=== PATIENT | male | born 1980 | race Caucasian/White ===

== ENCOUNTER → 2023-04-24 21:36 | Outpatient (CLI) | payer MEDICAID, SELFPAY ==
[2023-04-24 18:57] LABS: Basophils % 0.4 % (0.1-2.0); Eosinophils # 0.2 K/mm3 (0.0-0.4); Eosinophils % 1.7 % (0.1-12.0); Hematocrit 50.6 % (42.0-52.0); Hemoglobin 16.5 g/dL (14.1-18.0); Lymphocytes # 3.6 K/mm3 (0.7-4.5); Lymphocytes % 37.9 % (10-50); Mean Corpuscular HGB Conc 32.6 g/dL (31.8-35.4); Mean Corpuscular Hemoglobin 29.1 pg (27.0-31.2); Mean Corpuscular Volume 89.4 fl (80-94); Mean Platelet Volume 8.6 fl (7.4-10.4); Monocytes # 0.6 K/mm3 (0.1-1.0); Monocytes % 5.8 % (1.7-9.3); Neutrophils # 5.2 K/mm3 (1.8-7.8); Neutrophils % 54.2 % (37.0-80.0); Platelet Count 278 K/mm3 (142-424); Red Blood Count 5.66 M/mm3 (4.60-6.20); Red Cell Distribution Width 12.8 % (11.5-17.5); White Blood Count 9.5 K/mm3 (4.8-10.8)
[2023-04-24 19:02] LABS: Chloride 97 mmol/L (98-107); Potassium 4.1 mmoL/L (3.5-5.1); Sodium 135 mmol/L (136-145)
[2023-04-24 19:04] LABS: Blood Urea Nitrogen 16 mg/dl (9-20); Estimated Glomerular Filt Rate 146 ml/min (>60); GFR (African American) 176 ML/MIN (>60)
[2023-04-24 19:05] LABS: Alanine Aminotransferase 46 U/L (12-78); Albumin Level 4.2 g/dl (3.5-5.0); Albumin/Globulin Ratio 1.4 (1.1-1.8); Alkaline Phosphatase 122 U/L (38-126); Anion Gap 16.1 mEq/L (5-15); Aspartate Amino Transferase 35 U/L (17-59); Bilirubin,Total 0.8 mg/dl (0.2-1.3); Calcium 9.9 mg/dl (8.4-10.2); Carbon Dioxide 26 mmol/L (22.0-30.0); Chol/HDL Ratio 6.2 (1-3.5); Cholesterol 224 mg/dl (140-200); Globulin 3.1 g/dL (1.3-3.2); Glucose 244 mg/dl (74-100); HDL Cholesterol 36 mg/dl (40-60); Total Protein,Serum 7.3 g/dl (6.3-8.2); Triglycerides 280 mg/dl (30-150); VLDL Cholesterol 56 mg/dL (0-40)
[2023-04-24 19:16] LABS: Direct LDL Cholesterol 127.13 mg/dL (100-129)
[2023-04-24 19:29] LABS: Hemoglobin A1C 8.8 % (4.0-6.0)
== END ==
PROVIDERS: PCP Family Medicine; Visit Provider Family Medicine
DX: E11.9 Type 2 diabetes mellitus without complications (principal); I10 Essential (primary) hypertension; Z79.84 Long term (current) use of oral hypoglycemic drugs; Z79.899 Other long term (current) drug therapy; Z76.89 Persons encountering health services in other specified circumstances
CPT/HCPCS: 80053; 80061; 83036; 85025

== ENCOUNTER 2023-10-05 10:20 | Emergency (ER) | payer MEDICAID, SELFPAY ==
[2023-10-05 10:22] VITALS: BP 142/93; PULSE 72; RESP 16; TEMP 36.9; O2SAT 98; BMI 32.3
[2023-10-05 10:37] LABS: Microscopic, Urine URINE MICROSCOPIC (MICROSCOPIC)
[2023-10-05 10:40] LABS: Appearance,Urine CLEAR (Clear); Bilirubin,Urine Negative (Negative); Blood, Urine Negative (Negative); Color,Urine YELLOW (Yellow); Glucose,Urine (UA) 3+ (Negative); Ketones,Urine Negative (Negative); Leukocyte Esterase,Urine Negative (Negative); Nitrate,Urine Negative (Negative); Protein,Urine Negative (Negative); Urobilinogen,Urine 0.2 EU/dl (0.2)
[2023-10-05] MEDS: LACTATED RINGERS 1000ML 1,000 ML 999 ML IV (10:46)
--- NOTE | 2023-10-05 10:48 | CT_ITS ---
PROCEDURE INFORMATION: Exam: CTA Neck With Contrast Exam date and time: 10/05/2023 11:20 AM Age: 43 years old Clinical indication: Visual disturbance; Additional info: Vision change TECHNIQUE: Imaging protocol: Computed tomographic angiography of the neck with contrast. Exam focused on the cervical segments of the vasculature. 3D rendering (Not supervised by radiologist): MIP and/or 3D reconstructed images were created by the technologist. Radiation optimization: All CT scans at this facility use at least one of these dose optimization techniques: automated exposure control; mA and/or kV adjustment per patient size (includes targeted exams where dose is matched to clinical indication); or iterative reconstruction. Contrast material: ISO 370; Contrast volume: 100 ml; Contrast route: INTRAVENOUS (IV); COMPARISON: CT ANGIO HEAD 10/05/2023 11:20 AM FINDINGS: Right common carotid artery: No stenosis. No dissection or occlusion. Right internal carotid artery: No stenosis of the extracranial segment. No dissection or occlusion. Right external carotid artery: No occlusion or stenosis of the origin. Left common carotid artery: No stenosis. No dissection or occlusion. Left internal carotid artery: No stenosis of the extracranial segment. No dissection or occlusion. Left external carotid artery: No occlusion or stenosis of the origin. Right vertebral artery: No stenosis. No dissection or occlusion. Left vertebral artery: No stenosis. No dissection or occlusion. Paranasal sinuses: Polypoid mucosal thickening is noted in the floor the right maxillary antrum, to a lesser extent bilateral anterior ethmoid air cells. Soft tissues: Normal. No significant soft tissue swelling. Bones/joints: No acute fracture. IMPRESSION: No carotid stenosis. REFERENCES: NASCET CRITERIA. The degree of stenosis in the cervical segment of the internal carotid artery is based on NASCET criteria. Normal is no stenosis. Mild is less than 50% stenosis. Moderate is 50-69% stenosis. Severe is 70% to 99% stenosis. Total occlusion is no detectable patent lumen.
--- NOTE | 2023-10-05 10:48 | XR_ITS ---
PROCEDURE INFORMATION: Exam: XR Chest Exam date and time: 10/05/2023 11:22 AM Age: 43 years old Clinical indication: Pain; Chest pressure; Additional info: Cp dizzy TECHNIQUE: Imaging protocol: Radiologic exam of the chest. Views: 1 view. COMPARISON: CT ANGIO NECK 10/05/2023 11:20 AM FINDINGS: Lungs: Unremarkable. No consolidation. Pleural spaces: Unremarkable. No pleural effusion. No pneumothorax. Heart/Mediastinum: Unremarkable. No cardiomegaly. Bones/joints: Unremarkable. IMPRESSION: No acute findings.
--- NOTE | 2023-10-05 10:48 | CT_ITS ---
PROCEDURE INFORMATION: Exam: CTA Head With Contrast, Arteriography Exam date and time: 10/05/2023 11:20 AM Age: 43 years old Clinical indication: Visual disturbance; Additional info: Vision change TECHNIQUE: Imaging protocol: Computed tomographic angiography of the head with contrast. Exam focused on the arteries. 3D rendering (Not supervised by radiologist): MIP and/or 3D reconstructed images were created by the technologist. Radiation optimization: All CT scans at this facility use at least one of these dose optimization techniques: automated exposure control; mA and/or kV adjustment per patient size (includes targeted exams where dose is matched to clinical indication); or iterative reconstruction. Contrast material: ISO 370; Contrast volume: 100 ml; Contrast route: INTRAVENOUS (IV); COMPARISON: CT HEAD/BRAIN WO CON 10/05/2023 11:20 AM FINDINGS: ANTERIOR CIRCULATION: Right internal carotid artery: Intracranial segment is patent with no significant stenosis. No aneurysm. Right middle cerebral artery: No occlusion or significant stenosis. No aneurysm. Right anterior cerebral artery: No occlusion or significant stenosis. No aneurysm. Left internal carotid artery: Intracranial segment is patent with no significant stenosis. No aneurysm. Left middle cerebral artery: No occlusion or significant stenosis. No aneurysm. Left anterior cerebral artery: No occlusion or significant stenosis. No aneurysm. POSTERIOR CIRCULATION: Right vertebral artery: No occlusion or significant stenosis. No aneurysm. Left vertebral artery: No occlusion or significant stenosis. No aneurysm. Basilar artery: No occlusion or significant stenosis. No aneurysm. Right posterior cerebral artery: No occlusion or significant stenosis. No aneurysm. Left posterior cerebral artery: No occlusion or significant stenosis. No aneurysm. Brain: No definite mass, mass effect, or midline shift. Cerebral ventricles: No ventriculomegaly. Paranasal sinuses: Polypoid mucosal thickening is noted within ethmoid air cells in the right maxillary antrum. Bones/joints: Unremarkable. No acute fracture. Soft tissues: Unremarkable. IMPRESSION: No intracranial large vessel occlusion.
--- NOTE | 2023-10-05 10:48 | CT_ITS ---
PROCEDURE INFORMATION: Exam: CT Head Without Contrast Exam date and time: 10/05/2023 11:20 AM Age: 43 years old Clinical indication: Visual disturbance; Additional info: Vision change TECHNIQUE: Imaging protocol: Computed tomography of the head without contrast. Radiation optimization: All CT scans at this facility use at least one of these dose optimization techniques: automated exposure control; mA and/or kV adjustment per patient size (includes targeted exams where dose is matched to clinical indication); or iterative reconstruction. COMPARISON: CT ANGIO HEAD 10/05/2023 11:20 AM FINDINGS: Brain: Normal. No hemorrhage. Unremarkable white matter. No mass effect. Cerebral ventricles: No ventriculomegaly. Paranasal sinuses: Visualized sinuses are unremarkable. No fluid levels. Mastoid air cells: Visualized mastoid air cells are well aerated. Bones/joints: Unremarkable. No acute fracture. Soft tissues: Unremarkable. IMPRESSION: No evidence of acute intracranial abnormality.
[2023-10-05 10:50] LABS: Bacteria,Urine Trace /lpf; Squamous Epithelial Cell,Urine Occasional #/hpf (0-5)
[2023-10-05 10:51] VITALS: BP 142/93; RESP 18
--- NOTE | 2023-10-05 10:51 | ED_ITS ---
Discharge Plan Disposition Patient Disposition: Home, Self-Care Condition: Good Prescriptions Prescriptions: No Action oxycodone 10 mg tablet 10 mg PO QID PRN tizanidine 4 mg capsule 4 mg PO Q8H PRN metformin 1,000 mg tablet 1,000 mg PO BID Qty: 180 3RF glimepiride [Amaryl] 2 mg tablet 2 mg PO DAILY Qty: 90 3RF atorvastatin [Lipitor] 20 mg tablet 20 mg PO DAILY Qty: 90 3RF (DME) blood-glucose meter [Blood Glucose Monitoring] Kit See Rx Instructions .Route Qty: 1 0RF Rx Instructions: As directed (DME) Freestyle [employer] Strip See Rx Instructions .Route Qty: 50 0RF Rx Instructions: test once a day lisinopril-hydrochlorothiazide 10-12.5 mg tablet 1 tab PO DAILY Qty: 90 3RF Referrals Follow up/Referrals: Provider,Referral, [Primary Care Provider] - See instructions Activity Restrictions/Add. Instructions Additional Instructions/Restrictions: You were evaluated in the ER for concerns of high blood glucose. Call your [facility] physician and make an appointment for reevaluation immediately. They will likely want to change your current diabetes medications. Your current A1c is 10.3. Continue taking all home medications as previously prescribed until your follow-up appointment. Return to the ER with any new, worsening, or otherwise concerning symptoms Clinical Impressions Clinical Impression: Hyperglycemia, Diabetes Instructions Patient Instructions: DI for Hyperglycemia -- Adult Discharge ED Provider: Sandro Mott Adult HPI General Chief complaint: Hyper/Hypoglycemia Stated complaint: Diabetic emergency 340 Time Seen by Provider: 10/05/23 10:32 Mode of Arrival: Ambulatory Source of Information: Patient Limitations: No Limitations Description of Symptoms (Recalled from ER Triage Doc. by RN): Patient reports increased blood sugars. States he did a liquid fast and durning that time his glucose just kept rising. History of Present Illness HPI narrative: This 43-year-old male who is a type II diabetic presents to the ER with concerns of high blood sugars. Patient states he tried doing a fast and his glucose just kept rising. He broke his fast 4 days ago. Blood sugars have been hovering around 300 including this morning. Patient states he has been having blurry vision worsening over the last month, especially in the last few days. He denies any other neurologic symptoms at this time. 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 He endorses abdominal pain yesterday with nausea but no similar symptoms today. Patient states he is having increased thirst and urination as well. He only takes metformin currently for diabetes Related Data Home Medications Medication Instructions Recorded Confirmed oxycodone 10 mg tablet 10 mg PO QID PRN 04/24/23 04/24/23 tizanidine 4 mg capsule 4 mg PO Q8H PRN 04/24/23 04/24/23 Previous Rx's Medication Instructions Recorded metformin 1,000 mg tablet 1,000 mg PO BID #180 tabs 04/24/23 atorvastatin 20 mg tablet (Lipitor) 20 mg PO DAILY #90 tabs 04/29/23 glimepiride 2 mg tablet (Amaryl) 2 mg PO DAILY #90 tabs 04/29/23 blood-glucose meter (Blood Glucose #1 ea 05/22/23 Monitoring kit) blood sugar diagnostic (Freestyle #50 ea 08/05/23 [employer] strips) lisinopril 10 1 tab PO DAILY #90 tabs 08/12/23 mg-hydrochlorothiazide 12.5 mg tablet Allergies Allergy/AdvReac Type Severity Reaction Status Date / Time naproxen [From Naprosyn] Allergy Verified 10/05/23 10:32 tramadol Allergy Verified 04/24/23 09:29 [facility] Disclaimer: The information contained in this section may have been updated after the patient was seen, as this information can be updated by other users. Medical History (Updated 10/05/23 @ 12:56 by Sandro Mott MD) Arthritis Degenerated intervertebral disc Diabetes FHx: total knee replacement Hypertension Migraine Osteogenesis imperfecta PTSD (post-traumatic stress disorder) Stroke Surgical History (Updated 04/24/23 @ 17:35 by Huber Higuera MD) Hx of shoulder surgery Social History (Updated 04/24/23 @ 09:35 by RAJINDER Ponce) Smoking Status: Current every day smoker alcohol intake: former current occupational status: employed Travel in the last 8 weeks: None ROS Obtained: Yes All systems reviewed & no additional complaints except as documented Constitutional Constitutional: Denies chills, Denies fever(s), Denies headache(s) and Denies weakness Eyes Eyes: Reports change in vision and Denies diplopia ENT Ears, Nose, Mouth, and Throat: Denies dizziness, Denies headache(s), Denies nasal congestion and Denies sore throat Cardiovascular Cardiovascular: Reports chest pain, Reports dyspnea and Denies leg edema Respiratory Respiratory: Denies cough and Reports dyspnea Gastrointestinal Gastrointestingal: Denies constipation, diarrhea, nausea or vomiting Genitourinary Male Genitourinary: Denies difficulty urinating and Reports urinary frequency Musculoskeletal Musculoskeletal: Denies arthralgias, Denies myalgias, Denies numbness and Denies tingling Integumentary/Breasts Skin/Breast: Denies change in pigmentation Neurologic Neurologic: Denies dizziness, Denies headache(s), Denies numbness, Denies tingling and Denies weakness Endocrine Endocrine: Reports polydipsia and Reports polyuria Physical Exam General General appearance: alert and in no apparent distress Head Head exam: atraumatic and normocephalic Eye Eye exam: Present PERRL and EOMI ENT ENT exam: Present mucous membranes moist Neck Neck exam: Present normal inspection and full ROM Chest Chest inspection: Present symmetric chest wall rise Respiratory Respiratory exam: Present normal lung sounds bilaterally; Absent respiratory distress, wheezes or stridor Cardiovascular Cardiovascular exam: Present regular rate and normal rhythm Abdominal Exam Abdominal exam: Present soft; Absent distention or tenderness Extremities Exam Extremities exam: Present full ROM Neurological Exam Neurological exam: Present alert, oriented X3, CN II-XII intact and normal gait; Absent motor sensory deficit Psychiatric Psychiatric exam: Present normal affect and normal mood Skin Skin exam: Present warm and dry Medical Decision Making Todd Inquiry Pt receiving controlled substance: No Vital Signs: 10/05/23 10:22 10/05/23 10:51 10/05/23 11:11 Temperature 98.4 F Temperature Source Oral Pulse Rate 67 Pulse Rate [Radial] 72 Respiratory Rate 16 18 18 Blood Pressure 142/93 H 129/74 Blood Pressure [Right Arm] 142/93 H Blood Pressure Mean 92 Blood Pressure Mean [Right Arm] 109 Blood Pressure Source Automatic Cuff Blood Pressure Source [Right Arm] Automatic Cuff Blood Pressure Position Sitting Blood Pressure Position [Right Arm] Sitting 02 Sat by Pulse Oximetry 98 97 Oxygen Delivery Method Room Air Room Air 10/05/23 11:44 10/05/23 12:00 10/05/23 12:55 Temperature 98.4 F Temperature Source Oral Pulse Rate 64 74 76 Pulse Rate [Radial] Respiratory Rate 18 18 18 Blood Pressure 127/78 119/80 109/68 L Blood Pressure [Right Arm] Blood Pressure Mean 89 Blood Pressure Mean [Right Arm] Blood Pressure Source Automatic Cuff Automatic Cuff Blood Pressure Source [Right Arm] Blood Pressure Position Sitting Sitting Blood Pressure Position [Right Arm] 02 Sat by Pulse Oximetry 100 98 Oxygen Delivery Method Room Air Room Air Lab Data Lab Results 10/05/23 10:27: Urine Color Yellow, Urine Appearance Clear, Urine pH 6.0, Ur Specific [place] 1.010, Urine Protein Negative, Urine Glucose (UA) 3+, Urine Ketones Negative, Urine Blood Negative, Urine Nitrate Negative, Urine Bilirubin Negative, Urine Urobilinogen 0.2, Ur Leukocyte Esterase Negative, Urine RBC None, Urine WBC None, Ur Squamous Epith Cells Occasional, Urine Bacteria Trace 10/05/23 10:32: VBG pH 7.37, VBG pCO2 43.5, VBG pO2 51.7 H, VBG HCO3 24.8, VBG Total CO2 26.1, VBG O2 Saturation 86.3 H, VBG Base Excess -0.4 10/05/23 10:43: WBC 10.3, RBC 5.16, Hgb 15.9, Hct 44.9, MCV 87.0, MCH 30.8, MCHC 35.5 H, RDW 12.4, Plt Count 249, MPV 7.0 L, Neut % (Auto) 54.5, Lymph % (Auto) 36.9, [place] % (Auto) 4.7, Eos % (Auto) 3.1, Baso % (Auto) 0.7, Neut # (Auto) 5.6, Lymph # (Auto) 3.8, [place] # (Auto) 0.5, Eos # (Auto) 0.3, Baso # (Auto) 0.1, PT 10.9, INR 1.01, Sodium 131 L, Potassium 4.1, Chloride 96 L, Carbon Dioxide 25, Anion Gap 14.1, BUN 17, Creatinine 0.70, Estimated Creat Clear 192, Estimated GFR 122, Est GFR ( Amer) 148, Glucose 277 H, Hemoglobin A1c 10.3 H, Calcium 8.9, Total Bilirubin 0.6, AST 43, ALT 45, Alkaline Phosphatase 123, Troponin I < 0.01, Total Protein 7.2, Albumin 4.2, Globulin 3.0, Albumin/Globulin Ratio 1.4, Acetone Level None detected 10/05/23 10:43 10/05/23 10:43 Orders (Tests/Meds): ED MEDICATIONS Discontinued Medications Generic Name Dose Route Start Last Admin Trade Name Bandarq PRN Reason Stop Dose Admin Lactated Ringer's 1,000 mls @ 999 mls/hr 10/05/23 10:32 10/05/23 10:46 Lactated Ringer's 1000 Ml Bag IV 10/05/23 11:32 999 mls/hr .Q1H1M ONE Administration Iopamidol 100 ml 10/05/23 11:24 10/05/23 11:26 Iopamidol-370 (76%);100ml Bottle IV 10/05/23 11:25 100 ml ONCE ONE Administration Sodium Chloride 10 ml 10/05/23 11:24 10/05/23 11:25 Sodium Chloride 0.9% 10ml Syr (Rad Only) IV 10/05/23 11:25 10 ml ONCE ONE Administration Sodium Chloride 50 ml 10/05/23 11:24 10/05/23 11:25 0.9 % Sodium Chloride 50 Ml Vial IV 10/05/23 11:25 50 ml ONCE ONE Administration ORDERS Category Date Time Status CT angio head Stat Cat Scan 10/05/23 10:[address] angio neck Stat Cat Scan 10/05/23 10:[address] head/brain wo con Stat Cat Scan 10/05/23 10:48 Completed CXR --portable [XR chest portable] Stat Exams 10/05/23 10:48 Completed Acetone, Serum (Rapid) Stat Lab 10/05/23 10:43 Completed CBC w/Auto Diff [Complete Blood Count Auto Diff] Stat Lab 10/05/23 10:43 Completed CMP [Comprehensive Metabolic Panel] Stat Lab 10/05/23 10:43 Completed Hemoglobin A1C Stat Lab 10/05/23 10:43 Completed PT INR [Prothrombin Time INR] Stat Lab 10/05/23 10:43 Completed Trop I [Troponin I] Stat Lab 10/05/23 10:43 Completed Troponin I Q3H Lab 10/05/23 14:00 Ordered Troponin I Q3H Lab 10/05/23 17:00 Ordered Urinalysis and Microscopic Stat Lab 10/05/23 10:27 Completed VBG [Venous Blood Gas] Stat RT 10/05/23 10:32 Completed Medical Decision Narrative: In summary, this 43year old male presents to the emergency department today with concerns of high blood sugar, vision changes, intermittent chest pain and shortness of breath as well as abdominal discomfort yesterday. On initial evaluation patient is hemodynamically stable, afebrile, visual acuity 20/50 with unknown baseline. Differential diagnosis includes but is not limited to hyperglycemia, DKA, HHS, electrolyte abnormality, dehydration, patient does have history of stroke which is a comorbidity of current condition therefore I am being more thoughtful in my workup of his vision changes though I have high suspicion for hyperglycemia and diabetic retinopathy contributing. I did consider stroke. I also considered ACS given patient's chest pain, shortness of breath, and abdominal discomfort in the last 24 hours. Based on these concerns, I ordered cardiac workup, imaging of the brain as well as angiography, labs including VBG, acetone, electrolytes. ECG personally interpreted demonstrates normal sinus rhythm, rate 64, normal i ntervals, normal axis, no STEMI. Patient received IV fluids for treatment. Labs personally reviewed demonstrate no leukocytosis, WBC 10.3, no anemia, patient is hyperglycemic but similar to prior with blood glucose 277, it was 244 when he had a visit back in April 2023. Patient has mild hyponatremia but when corrected for glucose is normal. Nonactionable at this time. A1c is elevated at 10.3 worse than prior. UA negative for signs of infection but positive for glucose, undetectable acetone, normal anion gap. Initial troponin undetectable, repeat troponin is not necessary at this time given the duration of patient's symptoms, if this was cardiac in nature he would already have troponin elevation. XR personally interpreted demonstrates no acute intrathoracic abnormality on my personal interpretation, see radiology read for final interpretation. CT imaging personally interpreted demonstrate no acute intracranial abnormality such as bleed or mass, no acute vascular abnormality. See radiology read for final interpretation. On reassessment patient remains stable. He is appropriate for discharge at this time. I reviewed all instructions with him and he was given the opportunity to ask questions which were answered to his satisfaction. Most importantly he was instructed to have immediate follow-up with his primary care physician for better management of his blood glucose as I believe this is the underlying cause of his ongoing symptoms. Patient was given instructions on symptomatic management, follow up instructions, and return precautions for the emergency department. Patient indicated understanding and was discharged in stable condition. Critical Care Critical Care Time Critical Care Time: No
[2023-10-05 10:55] LABS: Basophils # 0.1 K/mm3 (0-0.2); Basophils % 0.7 % (0.1-2.0); Eosinophils # 0.3 K/mm3 (0.0-0.4); Eosinophils % 3.1 % (0.1-12.0); Hematocrit 44.9 % (42.0-52.0); Hemoglobin 15.9 g/dL (14.1-18.0); Lymphocytes # 3.8 K/mm3 (0.7-4.5); Lymphocytes % 36.9 % (10-50); Mean Corpuscular HGB Conc 35.5 g/dL (31.8-35.4); Mean Corpuscular Hemoglobin 30.8 pg (27.0-31.2); Monocytes # 0.5 K/mm3 (0.1-1.0); Monocytes % 4.7 % (1.7-9.3); Neutrophils # 5.6 K/mm3 (1.8-7.8); Neutrophils % 54.5 % (37.0-80.0); Platelet Count 249 K/mm3 (142-424); Red Blood Count 5.16 M/mm3 (4.60-6.20); Red Cell Distribution Width 12.4 % (11.5-17.5); White Blood Count 10.3 K/mm3 (4.8-10.8)
--- NOTE | 2023-10-05 10:56 | ECG_ITS ---
APPROVED REPORT Exam: Resting ECG HR:64 bpm ECG Measurements Heart Rate 64 AXES NH 183 P 40 QRSd 92 QRS 34 QT 378 T 31 QTc 388 Conclusion SINUS RHYTHM NORMAL ECG UNCONFIRMED REPORT Electronically signed by : Lj Melendez MD 10/08/2023 16:51:02
[2023-10-05 10:58] LABS: VBG Base Excess -0.4 mmol/L (-2.4-2.3); VBG HCO3 24.8 mmol/L (23-30); VBG Oxygen Saturation 86.3 % (50-70); VBG PCO2 43.5 mmol/L (35-51); VBG PH 7.37 mmol/L (7.31-7.41); VBG PO2 51.7 mmol/L (28-40); VBG Total CO2 26.1 mmol/L (23-27)
[2023-10-05 11:00] LABS: Acetone, Serum (Rapid) None Detected (None Detect); Chloride 96 mmol/L (98-107)
[2023-10-05 11:01] LABS: Potassium 4.1 mmoL/L (3.5-5.1); Sodium 131 mmol/L (136-145)
[2023-10-05 11:03] LABS: Alanine Aminotransferase 45 U/L (12-78); Alkaline Phosphatase 123 U/L (38-126); Aspartate Amino Transferase 43 U/L (17-59); Bilirubin,Total 0.6 mg/dl (0.2-1.3); Blood Urea Nitrogen 17 mg/dl (9-20); Creatinine Clearance Estimated 192 mL/min (50-200); Estimated Glomerular Filt Rate 122 ml/min (>60); GFR (African American) 148 ML/MIN (>60)
[2023-10-05 11:04] LABS: Albumin Level 4.2 g/dl (3.5-5.0); Albumin/Globulin Ratio 1.4 (1.1-1.8); Anion Gap 14.1 mEq/L (5-15); Calcium 8.9 mg/dl (8.4-10.2); Carbon Dioxide 25 mmol/L (22.0-30.0); Glucose 277 mg/dl (74-100); Total Protein,Serum 7.2 g/dl (6.3-8.2)
[2023-10-05 11:05] LABS: INR 1.01 (0.9-1.1); Prothrombin Time 10.9 seconds (10.1-12.5)
[2023-10-05 11:11] VITALS: BP 129/74; PULSE 67; RESP 18; O2SAT 97
--- NOTE | 2023-10-05 11:15 | PC.NURSE ---
PT TO CT
[2023-10-05 11:18] LABS: Troponin I < 0.01 ng/ml (0.00-0.034)
[2023-10-05 11:20] LABS: Hemoglobin A1C 10.3 % (4.0-6.0)
[2023-10-05] MEDS: SODIUM CHLORIDE 0.9% 10ML SYR (RAD ONLY) 10 ML IV (11:25)
[2023-10-05] MEDS: 0.9 % SODIUM CHLORIDE 50 ML VIAL IV (11:25)
[2023-10-05] MEDS: IOPAMIDOL-370 (76%);100ML BOTTLE 100 ML IV (11:26)
--- NOTE | 2023-10-05 11:28 | PC.NURSE ---
PT RETURNED FROM CT
[2023-10-05 11:44] VITALS: BP 127/78; PULSE 64; RESP 18; O2SAT 100
[2023-10-05 12:00] VITALS: BP 119/80; PULSE 74; RESP 18; O2SAT 98
--- NOTE | 2023-10-05 12:49 | PC.NURSE ---
DR BERNSTIEN AT BEDSIDE TO UPDATE PT
[2023-10-05 12:55] VITALS: BP 109/68; PULSE 76; RESP 18; TEMP 36.9; O2SAT 97
== END 2023-10-05 13:06 | disposition home or self-care (01) ==
PROVIDERS: Emergency Provider Emergency Medicine
DX: E11.65 Type 2 diabetes mellitus with hyperglycemia (principal); H53.8 Other visual disturbances; R07.9 Chest pain, unspecified; R35.0 Frequency of micturition; R63.1 Polydipsia; R42 Dizziness and giddiness; R06.00 Dyspnea, unspecified; I10 Essential (primary) hypertension; Q78.0 Osteogenesis imperfecta; F17.200 Nicotine dependence, unspecified, uncomplicated; Z86.73 Personal history of transient ischemic attack (TIA), and cerebral infarction without residual deficits; E87.1 Hypo-osmolality and hyponatremia
CPT/HCPCS: 70450; 70496; 70498; 71045; 80053; 81001; 82009; 82803; 83036; 84484; 85025; 85610; 93005; 96360; 99285; Q9967

== ENCOUNTER 2023-10-16 19:13 | Outpatient (CLI) | payer MEDICAID, SELFPAY ==
[2023-10-16 18:47] LABS: Alanine Aminotransferase 57 U/L (12-78); Albumin Level 4.6 g/dl (3.5-5.0); Albumin/Globulin Ratio 1.6 (1.1-1.8); Alkaline Phosphatase 97 U/L (38-126); Anion Gap 22.2 mEq/L (5-15); Aspartate Amino Transferase 44 U/L (17-59); Bilirubin,Total 0.5 mg/dl (0.2-1.3); Blood Urea Nitrogen 19 mg/dl (9-20); Calcium 9.4 mg/dl (8.4-10.2); Carbon Dioxide 25 mmol/L (22.0-30.0); Chloride 92 mmol/L (98-107); Chol/HDL Ratio 4.2 (1-3.5); Cholesterol 127 mg/dl (140-200); Estimated Glomerular Filt Rate 122 ml/min (>60); GFR (African American) 148 ML/MIN (>60); Globulin 2.8 g/dL (1.3-3.2); Glucose 127 mg/dl (74-100); HDL Cholesterol 30 mg/dl (40-60); Potassium 4.2 mmoL/L (3.5-5.1); Sodium 135 mmol/L (136-145); Total Protein,Serum 7.4 g/dl (6.3-8.2); Triglycerides 132 mg/dl (30-150); VLDL Cholesterol 26 mg/dL (0-40)
[2023-10-16 18:57] LABS: Direct LDL Cholesterol 72.77 mg/dL (100-129)
[2023-10-16 19:16] LABS: Prostate Specific Ag Screen 0.5 ng/ml (0.0-4.0); Thyroid Stimulating Hormone 1.36 uIU/mL (0.465-4.68)
[2023-10-16 19:18] LABS: Creatinine,Urine Random 67 mg/dL (Not Estab.); Microalbumin < 6.000 mg/L (0-16.7)
[2023-10-16 19:35] LABS: Vitamin B12 284 pg/mL (239-931)
[2023-10-18 07:42] LABS: Testosterone,Total 327 ng/dL (264-916)
== END 2023-10-16 23:59 ==
LOC: LAB.DROPOF 19:13
PROVIDERS: PCP Nurse Practitioner; Visit Provider Nurse Practitioner
DX: E11.9 Type 2 diabetes mellitus without complications (principal); I10 Essential (primary) hypertension; R73.9 Hyperglycemia, unspecified; E34.9 Endocrine disorder, unspecified; Z79.4 Long term (current) use of insulin; Z12.5 Encounter for screening for malignant neoplasm of prostate; Z79.899 Other long term (current) drug therapy
CPT/HCPCS: 80053; 80061; 82043; 82570; 82607; 84403; 84443; G0103

== ENCOUNTER 2023-12-26 14:37 | Emergency (ER) | payer MEDICAID, SELFPAY ==
--- NOTE | 2023-12-26 14:37 | ECG_ITS ---
APPROVED REPORT Exam: Resting ECG HR:81 bpm ECG Measurements Heart Rate 81 AXES HI 160 P 48 QRSd 101 QRS 59 QT 345 T 51 QTc 382 Conclusion SINUS RHYTHM NORMAL ECG Electronically signed by : SILKE FABIAN, 12/28/2023 16:09:16
[2023-12-26 14:38] VITALS: BP 147/89; PULSE 80; RESP 18; TEMP 36.6; O2SAT 100; BMI 32.7
--- NOTE | 2023-12-26 14:45 | CA_ITS ---
FINAL REPORT TECHNIQUE: Ultrasound images of the deep venous system were obtained from the left groin to the calf veins. CLINICAL HISTORY: pain/swelling L calf postop x 1 day FINDINGS: The deep venous system is normally compressible. Normal flow is identified. IMPRESSION: No evidence of left lower extremity DVT. Reviewed, Interpreted and Dictated by Bernardo Lewis MD Transcribed by China Chavarria Authenticated and [facility]
--- NOTE | 2023-12-26 14:48 | XR_ITS ---
FINAL REPORT CLINICAL HISTORY: cough, postop, chest pain COMPARISON: 10/05/2023 FINDINGS: SINGLE-VIEW CHEST The heart size is normal. The mediastinum is normal. There is atelectasis at the left base. There is no pneumothorax. IMPRESSION: Left base atelectasis. Reviewed, Interpreted and Dictated by Bernardo Lewis MD Transcribed by China Chavarria Authenticated and [facility]
--- NOTE | 2023-12-26 14:49 | PC.NURSE ---
pt taking off shorts and placing sheet on lap.
--- NOTE | 2023-12-26 14:50 | ED_ITS ---
Discharge Plan Disposition Patient Disposition: Still a Patient Prescriptions Prescriptions: No Action oxycodone 10 mg tablet 10 mg PO QID PRN tizanidine 4 mg capsule 4 mg PO Q8H PRN metformin 1,000 mg tablet 1,000 mg PO BID Qty: 180 3RF Jardiance 25 mg tablet 25 mg PO DAILY Qty: 30 2RF (DME) lancets Misc See Rx Instructions .MEDSUPPLY Qty: 100 11RF Rx Instructions: As directed glimepiride [Amaryl] 2 mg tablet 2 mg PO DAILY Qty: 90 3RF atorvastatin [Lipitor] 20 mg tablet 20 mg PO DAILY Qty: 90 3RF (DME) blood-glucose meter [Blood Glucose Monitoring] Kit See Rx Instructions .Route Qty: 1 0RF Rx Instructions: As directed lisinopril-hydrochlorothiazide 10-12.5 mg tablet 1 tab PO DAILY Qty: 90 3RF (DME) Freestyle [employer] Strip See Rx Instructions .ROUTE .COMPLEX Qty: 50 0RF Dose Instruction: USE TO TEST ONCE DAILY Rx Instructions: USE TO TEST ONCE DAILY Activity Restrictions/Add. Instructions Additional Instructions/Restrictions: There is no evidence of a clot in her lower extremity such as a DVT or a pulmonary embolism as well. No evidence of any acute cardiopulmonary emergency or other emergent medical condition identified today. Please follow-up with your primary care doctor as needed. Clinical Impressions Clinical Impression: Pain of left calf, Chest pain Discharge ED Provider: Savita Mcneil HPI <Savita Mcneil DO - Last Filed: 12/26/23 15:03> General Chief Complaint: Chest Pain Stated Complaint: Chest Pain Time Seen by Provider: 12/26/23 14:39 Mode of Arrival: Ambulatory Source of Information: Patient Limitations: No Limitations Description of Symptoms (Recalled from ER Triage Doc. by RN): Patient reports having back surgery yesterday and then today he was told that he may have a blood clot in his left calf. On the way to the hospital he developed chest pain and a migraine. History of Present Illness HPI narrative: This patient is a 43-year-old male with a history of chronic back pain, migraine, CVA, hypertension, and diabetes presenting to the emergency department for evaluation with concern for left calf pain, chest pain, and headache. Patient reports that he had a spine stimulator replaced yesterday in [place] with Dr. Krishna Mcdowell. Today, he started having some swelling, pain, and cramping in his left calf, and he became concerned for blood clot. He called their office and was arranged an outpatient appointment, however on the way he developed a migraine, which is not unusual for him, and then also developed chest pressure radiating down his left arm. He states that the chest pain has gotten a little bit better, but is still present if he coughs or takes a deep breath. He denies any fevers, chills, abdominal pain, vomiting, changes in bowel movements, new neurologic deficits, or other concerns. No history of blood clots or clotting disorders. Related Data Home Medications Medication Instructions Recorded Confirmed oxycodone 10 mg tablet 10 mg PO QID PRN 04/24/23 10/16/23 tizanidine 4 mg capsule 4 mg PO Q8H PRN 04/24/23 10/16/23 Previous Rx's Medication Instructions Recorded metformin 1,000 mg tablet 1,000 mg PO BID #180 tabs 04/24/23 atorvastatin 20 mg tablet (Lipitor) 20 mg PO DAILY #90 tabs 04/29/23 glimepiride 2 mg tablet (Amaryl) 2 mg PO DAILY #90 tabs 04/29/23 blood-glucose meter (Blood Glucose #1 ea 05/22/23 Monitoring kit) lisinopril 10 1 tab PO DAILY #90 tabs 08/12/23 mg-hydrochlorothiazide 12.5 mg tablet empagliflozin 25 mg tablet 25 mg PO DAILY #30 tabs 10/07/23 (Jardiance) lancets #100 ea 10/07/23 blood sugar diagnostic (Freestyle #50 strips 11/25/23 Insu[employer]x strips) Allergies Allergy/AdvReac Type Severity Reaction Status Date / Time naproxen [From Naprosyn] Allergy Verified 10/16/23 09:01 tramadol Allergy Verified 10/16/23 09:01 [facility] <Savita Mcneil DO - Last Filed: 12/26/23 15:03> [facility] Disclaimer: The information contained in this section may have been updated after the patient was seen, as this information can be updated by other users. Medical History (Updated 12/26/23 @ 15:01 by Savita Mcneil DO) Hypotestosteronemia FHx: total knee replacement Stroke Migraine Hypertension Diabetes Arthritis PTSD (post-traumatic stress disorder) Degenerated intervertebral disc Osteogenesis imperfecta Surgical History Hx of shoulder surgery Social History Smoking Status: Light tobacco smoker alcohol intake: former current occupational status: employed Travel in the last 8 weeks: None <Savita Mcneil DO - Last Filed: 12/26/23 15:03> ROS Obtained: Yes All systems reviewed & no additional complaints except as documented Physical Exam <Savita Mcneil DO - Last Filed: 12/26/23 15:03> General General appearance: alert and in no apparent distress Head Head exam: atraumatic and normocephalic Eye Eye exam: Present normal appearance, PERRL and EOMI ENT ENT exam: Present normal exam, normal oropharynx, mucous membranes moist and normal external ear exam Neck Neck exam: Present normal inspection, full ROM and trachea midline; Absent tenderness Chest Chest inspection: Present normal inspection and symmetric chest wall rise; Absent tenderness Respiratory Respiratory exam: Present normal lung sounds bilaterally; Absent respiratory distress, wheezes, stridor or accessory muscle use Cardiovascular Cardiovascular exam: Present regular rate and normal rhythm Abdominal Exam Abdominal exam: Present soft; Absent distention, tenderness or guarding Extremities Exam Extremities exam: Present full ROM, tenderness, normal capillary refill and calf tenderness (Left calf); Absent edema Back Exam Back exam: Present full ROM and other (surgical site/incision clean/dry/intact); Absent tenderness Neurological Exam Neurological exam: Present alert, oriented X3, CN II-XII intact and normal gait; Absent motor sensory deficit Psychiatric Psychiatric exam: Present normal affect and normal mood Skin Skin exam: Present warm and dry HEART Score <Savita Mcneil DO - Last Filed: 12/26/23 15:03> HEART Score HEART Score assessment performed?: No History (anamnesis): Slightly suspicious ECG: Normal Age: 45-65 years Risk factors: 1-2 risk factors <Lilly Maria MD - Last Filed: 12/26/23 16:40> HEART Score Troponin: </= normal limit HEART Score: 2 Critical Care <Savita Mcneil DO - Last Filed: 12/26/23 15:03> Critical Care Time Critical Care Time: No Medical Decision Making <Savita Mcneil, DO - Last Filed: 12/26/23 15:03> Medical Records Medical records reviewed: Yes I reviewed the patient's medical records. Todd Inquiry Pt receiving controlled substance: No Vital Signs Vital Signs: 12/26/23 14:38 12/26/23 15:00 12/26/23 15:30 Temperature 97.9 F Temperature Source Oral Pulse Rate 75 70 Pulse Rate [Radial] 80 Respiratory Rate 18 Blood Pressure 135/79 125/74 Blood Pressure [Right Arm] 147/89 H Blood Pressure Mean [Right Arm] 108 Blood Pressure Source [Right Arm] Automatic Cuff Blood Pressure Position [Right Arm] Sitting 02 Sat by Pulse Oximetry 100 96 95 Oxygen Delivery Method Room Air Room Air Room Air Lab Data Labs: Lab Results 12/26/23 14:42: WBC 17.6 H, RBC 5.23, Hgb 15.8, Hct 47.8, MCV 91.4, MCH 30.2, MCHC 33.1, RDW 13.2, Plt Count 312, MPV 7.3 L, Neut % (Auto) 64.3, Lymph % (Auto) 28.5, [place] % (Auto) 4.9, Eos % (Auto) 1.6, Baso % (Auto) 0.6, Neut # (Auto) 11.4 H, Lymph # (Auto) 5.0 H, [place] # (Auto) 0.9, Eos # (Auto) 0.3, Baso # (Auto) 0.1, PT 9.8 L, INR 0.90, APTT 26.2, D-Dimer 0.30, Sodium 136, Potassium 3.9, Chloride 101, Carbon Dioxide 27, Anion Gap 11.9, BUN 20, Creatinine 0.80, Estimated Creat Clear 171, Estimated GFR 105, Est GFR ( Amer) 126, G lucose 149 H, Calcium 9.5, Total Bilirubin 0.5, AST 43, ALT 41, Alkaline Phosphatase 85, Troponin I < 0.01, Total Protein 7.2, Albumin 4.3, Globulin 2.9, Albumin/Globulin Ratio 1.5 12/26/23 14:42 12/26/23 14:42 Response Orders (Tests/Meds): ORDERS Category Date Time Status XR chest portable Stat Exams 12/26/23 14:48 Completed Activated Partial Thrombo Time Stat Lab 12/26/23 14:42 Completed Complete Blood Count Auto Diff Stat Lab 12/26/23 14:42 Results Comprehensive Metabolic Panel Stat Lab 12/26/23 14:42 Completed D-Dimer Stat Lab 12/26/23 14:42 Completed Prothrombin Time INR Stat Lab 12/26/23 14:42 Completed Trop I [Troponin I] Stat Lab 12/26/23 14:42 Completed Troponin I Q3H Lab 12/26/23 18:00 Ordered Troponin I Q3H Lab 12/26/23 21:00 Ordered CA venous doppler LE LT Stat Y 12/26/23 14:45 Completed ECG Data Tracing #1: Attestation: I reviewed this ECG and interpreted as documented below: ECG Narrative: Normal sinus rhythm with a ventricular rate of [address] changes concerning for ischemia. Normal axis and intervals. ECG initial impression date: 12/26/23 ECG initial impression time: 14:38 MDM Narrative Medical Decision Narrative: In summary, this patient is a 43-year-old male presenting to the Emergency Department for evaluation of left calf pain, migraine, and chest pain after having a spinal implant replaced yesterday. Differential diagnoses considered include but are not limited to DVT, PE, ACS, dysrhythmia, pneumonia, equipment to function, electrolyte derangements. Ruling out the most morbid conditions drove assessment. On exam, the patient is nontoxic-appearing. He has normal vital signs on cardiac telemetry. EKG was obtained and reassuring. He does not have significant swelling or skin color changes of his calf, but he does have tenderness. Surgical site is clean, dry, and intact, and the patient is without new neurologic deficits or symptoms. New given that his recent surgery was yesterday, cannot exclude DVT based on PERC criteria. He is not tachycardic or hypoxic. Workup included CBC, CMP, troponin, D-dimer, chest x-ray, and DVT ultrasound of the left lower extremity. Patient was given IV Toradol and Tylenol for symptomatic improvement. Ultimately, patient care signed out to the oncoming provider, Dr. Maria, pending results and disposition. HEART SCORE <Lilly Maria MD - Last Filed: 12/26/23 16:40> Vital Signs Vital Signs: 12/26/23 14:38 12/26/23 15:00 12/26/23 15:30 Temperature 97.9 F Temperature Source Oral Pulse Rate 75 70 Pulse Rate [Radial] 80 Respiratory Rate 18 Blood Pressure 135/79 125/74 Blood Pressure [Right Arm] 147/89 H Blood Pressure Mean [Right Arm] 108 Blood Pressure Source [Right Arm] Automatic Cuff Blood Pressure Position [Right Arm] Sitting 02 Sat by Pulse Oximetry 100 96 95 Oxygen Delivery Method Room Air Room Air Room Air Lab Data Lab results reviewed: Yes I reviewed the patient's lab results. Labs: Lab Results 12/26/23 14:42: WBC 17.6 H, RBC 5.23, Hgb 15.8, Hct 47.8, MCV 91.4, MCH 30.2, MCHC 33.1, RDW 13.2, Plt Count 312, MPV 7.3 L, Neut % (Auto) 64.3, Lymph % (Auto) 28.5, [place] % (Auto) 4.9, Eos % (Auto) 1.6, Baso % (Auto) 0.6, Neut # (Auto) 11.4 H, Lymph # (Auto) 5.0 H, [place] # (Auto) 0.9, Eos # (Auto) 0.3, Baso # (Auto) 0.1, PT 9.8 L, INR 0.90, APTT 26.2, D-Dimer 0.30, Sodium 136, Potassium 3.9, Chloride 101, Carbon Dioxide 27, Anion Gap 11.9, BUN 20, Creatinine 0.80, Estimated Creat Clear 171, Estimated GFR 105, Est GFR ( Amer) 126, G lucose 149 H, Calcium 9.5, Total Bilirubin 0.5, AST 43, ALT 41, Alkaline Phosphatase 85, Troponin I < 0.01, Total Protein 7.2, Albumin 4.3, Globulin 2.9, Albumin/Globulin Ratio 1.5 Response Orders (Tests/Meds): ORDERS Category Date Time Status XR chest portable Stat Exams 12/26/23 14:48 Completed Activated Partial Thrombo Time Stat Lab 12/26/23 14:42 Completed Complete Blood Count Auto Diff Stat Lab 12/26/23 14:42 Results Comprehensive Metabolic Panel Stat Lab 12/26/23 14:42 Completed D-Dimer Stat Lab 12/26/23 14:42 Completed Prothrombin Time INR Stat Lab 12/26/23 14:42 Completed Trop I [Troponin I] Stat Lab 12/26/23 14:42 Completed Troponin I Q3H Lab 12/26/23 18:00 Ordered Troponin I Q3H Lab 12/26/23 21:00 Ordered CA venous doppler LE LT Stat Y 12/26/23 14:45 Completed MDM Narrative Medical Decision Narrative: In summary, this patient is a 43-year-old male presenting to the Emergency Department for evaluation of left calf pain, migraine, and chest pain after having a spinal implant replaced yesterday. Differential diagnoses considered include but are not limited to DVT, PE, ACS, dysrhythmia, pneumonia, equipment to function, electrolyte derangements. Ruling out the most morbid conditions drove assessment. On exam, the patient is nontoxic-appearing. He has normal vital signs on cardiac telemetry. EKG was obtained and reassuring. He does not have significant swelling or skin color changes of his calf, but he does have tenderness. Surgical site is clean, dry, and intact, and the patient is without new neurologic deficits or symptoms. New given that his recent surgery was yesterday, cannot exclude DVT based on PERC criteria. He is not tachycardic or hypoxic. Workup included CBC, CMP, troponin, D-dimer, chest x-ray, and DVT ultrasound of the left lower extremity. Patient was given IV Toradol and Tylenol for symptomatic improvement. Ultimately, patient care signed out to the oncoming provider, Dr. Maria, pending results and disposition. HEART SCORE [address] Maria 4:38 PM D-dimer was within normal limits. This is not concerning for pulmonary embolism or DVT. DVT ultrasound was also performed which was negative. Patient's troponin was undetectably low I also personally interpreted patient's EKG which shows no evidence of ischemia. Patient states his chest discomfort has been ongoing since 7 AM this morning with a negative troponin at this point this is not consistent with a myocardial injury or acute coronary syndrome. Chest x-ray was performed to person interpreted shows no emergent medical condition. I reexamined the patient's lower extremity there is no evidence of any erythema or swelling of his calf in particular. This is all not consistent with an emergent medical condition. He has been advised to follow-up with primary care doctor as needed. Of note the patient does have a leukocytosis which is nonspecific no other evidence of any infection from the history or physical standpoint labs and vitals are otherwise unremarkable no evidence of sepsis etc. Most likely secondary to recent surgery and stress from that procedure.
[2023-12-26 14:54] LABS: Chloride 101 mmol/L (98-107)
[2023-12-26 14:55] LABS: Basophils # 0.1 K/mm3 (0-0.2); Basophils % 0.6 % (0.1-2.0); Eosinophils # 0.3 K/mm3 (0.0-0.4); Eosinophils % 1.6 % (0.1-12.0); Hematocrit 47.8 % (42.0-52.0); Hemoglobin 15.8 g/dL (14.1-18.0); Lymphocytes % 28.5 % (10-50); Mean Corpuscular HGB Conc 33.1 g/dL (31.8-35.4); Mean Corpuscular Hemoglobin 30.2 pg (27.0-31.2); Mean Corpuscular Volume 91.4 fl (80-94); Mean Platelet Volume 7.3 fl (7.4-10.4); Monocytes # 0.9 K/mm3 (0.1-1.0); Monocytes % 4.9 % (1.7-9.3); Neutrophils # 11.4 K/mm3 (1.8-7.8); Neutrophils % 64.3 % (37.0-80.0); Platelet Count 312 K/mm3 (142-424); Potassium 3.9 mmoL/L (3.5-5.1); Red Blood Count 5.23 M/mm3 (4.60-6.20); Red Cell Distribution Width 13.2 % (11.5-17.5); Sodium 136 mmol/L (136-145); White Blood Count 17.6 K/mm3 (4.8-10.8)
--- NOTE | 2023-12-26 14:55 | PC.NURSE ---
doppler at bedside
[2023-12-26 14:57] LABS: Alanine Aminotransferase 41 U/L (12-78); Anion Gap 11.9 mEq/L (5-15); Aspartate Amino Transferase 43 U/L (17-59); Blood Urea Nitrogen 20 mg/dl (9-20); Carbon Dioxide 27 mmol/L (22.0-30.0); Creatinine Clearance Estimated 171 mL/min (50-200); Estimated Glomerular Filt Rate 105 ml/min (>60); GFR (African American) 126 ML/MIN (>60)
[2023-12-26 14:58] LABS: Albumin Level 4.3 g/dl (3.5-5.0); Albumin/Globulin Ratio 1.5 (1.1-1.8); Alkaline Phosphatase 85 U/L (38-126); Bilirubin,Total 0.5 mg/dl (0.2-1.3); Calcium 9.5 mg/dl (8.4-10.2); Globulin 2.9 g/dL (1.3-3.2); Glucose 149 mg/dl (74-100); MANUAL DIFFERENTIAL MANUAL DIFFERENTIAL (MANUAL DIFF); Total Protein,Serum 7.2 g/dl (6.3-8.2)
[2023-12-26 15:00] VITALS: BP 135/79; PULSE 75; O2SAT 96
[2023-12-26 15:01] LABS: Activated Partial Thrombo Time 26.2 seconds (22.8-30.6); Prothrombin Time 9.8 seconds (10.1-12.5)
[2023-12-26 15:14] LABS: Troponin I < 0.01 ng/ml (0.00-0.034)
--- NOTE | 2023-12-26 15:26 | PC.NURSE ---
XR AT BEDSIDE
[2023-12-26 15:30] VITALS: BP 125/74; PULSE 70; O2SAT 95
--- NOTE | 2023-12-26 16:32 | PC.NURSE ---
DR PINEDA AT BEDSIDE
[2023-12-26 16:47] VITALS: BP 125/74; PULSE 70; RESP 15; TEMP 36.7
[2023-12-26 17:21] LABS: Lymphocytes % 15 % (10-50); Monocytes % 12 % (2-9); Neutrophils % 73 % (42-76); Total Cells Counted 100
[2023-12-26 17:46] LABS: Anisocytosis 1+; Hypochromasia 1+; Platelet Estimate Normal
== END 2023-12-26 16:48 | disposition home or self-care (01) ==
PROVIDERS: Emergency Provider Emergency Medicine; PCP Nurse Practitioner
DX: R07.9 Chest pain, unspecified (principal); M79.662 Pain in left lower leg; R51.9 Headache, unspecified; I10 Essential (primary) hypertension; E11.9 Type 2 diabetes mellitus without complications; F17.210 Nicotine dependence, cigarettes, uncomplicated; Z79.84 Long term (current) use of oral hypoglycemic drugs
CPT/HCPCS: 71045; 80053; 84484; 85007; 85025; 85378; 85610; 85730; 93005; 93971; 99285

== ENCOUNTER 2024-02-05 07:52 | Outpatient (CLI) | payer MEDICAID, SELFPAY ==
--- NOTE | 2024-02-05 07:52 | CT_ITS ---
FINAL REPORT TECHNIQUE: Axial images were obtained from the lung base to the iliac crest by computed tomography before and after the administration of contrast. This study was performed with techniques to keep radiation doses as low as reasonably achievable (ALARA). Individualized dose reduction techniques using automated exposure control or adjustment of mA and/or kV according to the patient's size were employed. CLINICAL HISTORY: umbilical hernia COMPARISON: None FINDINGS: The lung bases are clear. The heart is normal in size. The liver is homogeneous. The gallbladder is present. The spleen is normal. No adrenal masses present. The pancreas is normal. The kidneys are normal. The aorta is normal in caliber. The appendix is unremarkable. There are fluid filled loops of nondistended small bowel in a nonobstructive pattern. There is a small fat-containing umbilical hernia which measures approximately 1.5 cm in transverse dimension. IMPRESSION: Small fat-containing umbilical hernia. Reviewed, Interpreted and Dictated by Bernardo Lewis MD Transcribed by Shayy Lynch Authenticated and [facility]
[2024-02-05 08:24] LABS: Blood Urea Nitrogen 22 mg/dl (9-20); Estimated Glomerular Filt Rate 105 ml/min (>60); GFR (African American) 126 ML/MIN (>60)
[2024-02-05] MEDS: SODIUM CHLORIDE 0.9% 10ML SYR (RAD ONLY) 10 ML IV (09:21)
[2024-02-05] MEDS: IOPAMIDOL-370 (76%);100ML BOTTLE 75 ML IV (09:21)
== END 2024-02-05 23:59 | disposition home or self-care (01) ==
LOC: RAD 07:52
PROVIDERS: PCP Nurse Practitioner; Visit Provider Nurse Practitioner
DX: K42.9 Umbilical hernia without obstruction or gangrene (principal)
CPT/HCPCS: 36415; 74170; 82565; 84520; Q9967

== ENCOUNTER 2024-04-01 18:52 | Outpatient (CLI) | payer MEDICAID, SELFPAY ==
[2024-04-01 19:38] LABS: Alanine Aminotransferase 30 U/L (12-78); Albumin Level 4.2 g/dl (3.5-5.0); Albumin/Globulin Ratio 1.4 (1.1-1.8); Alkaline Phosphatase 81 U/L (38-126); Anion Gap 12.5 mEq/L (5-15); Aspartate Amino Transferase 31 U/L (17-59); Bilirubin,Total 0.8 mg/dl (0.2-1.3); Blood Urea Nitrogen 18 mg/dl (9-20); Calcium 9.8 mg/dl (8.4-10.2); Carbon Dioxide 26 mmol/L (22.0-30.0); Chloride 103 mmol/L (98-107); Chol/HDL Ratio 3.5 (1-3.5); Cholesterol 138 mg/dl (140-200); Estimated Glomerular Filt Rate 121 ml/min (>60); GFR (African American) 147 ML/MIN (>60); Globulin 2.9 g/dL (1.3-3.2); Glucose 128 mg/dl (74-100); HDL Cholesterol 39 mg/dl (40-60); Potassium 4.5 mmoL/L (3.5-5.1); Sodium 137 mmol/L (136-145); Total Protein,Serum 7.1 g/dl (6.3-8.2); Triglycerides 109 mg/dl (30-150); VLDL Cholesterol 22 mg/dL (0-40)
[2024-04-01 19:48] LABS: Hemoglobin A1C 6.5 % (4.0-6.0)
[2024-04-01 19:49] LABS: Direct LDL Cholesterol 72.95 mg/dL (100-129)
== END 2024-04-01 23:59 | disposition home or self-care (01) ==
LOC: LAB.DROPOF 18:53
PROVIDERS: PCP Nurse Practitioner; Visit Provider Nurse Practitioner
DX: E11.9 Type 2 diabetes mellitus without complications (principal); Z79.84 Long term (current) use of oral hypoglycemic drugs; E78.5 Hyperlipidemia, unspecified
CPT/HCPCS: 80053; 80061; 83036

== ENCOUNTER 2024-09-07 09:19 | Outpatient (CLI) | payer MEDICAID, SELFPAY | END 2024-09-07 23:59 | disposition home or self-care (01) | LOC: LAB.DROPOF 09-08 09:19 | PROVIDERS: PCP Nurse Practitioner; Visit Provider Nurse Practitioner | DX: L01.00 Impetigo, unspecified (principal); B95.5 Unspecified streptococcus as the cause of diseases classified elsewhere | CPT/HCPCS: 87070; 87077; 87186; 87205 ==

== ENCOUNTER 2024-11-17 09:55 | Outpatient (CLI) | payer MEDICAID, SELFPAY ==
[2024-11-17 21:21] LABS: Alanine Aminotransferase 36 U/L (12-78); Albumin Level 4.5 g/dl (3.5-5.0); Alkaline Phosphatase 80 U/L (38-126); Anion Gap 13.4 mEq/L (5-15); Aspartate Amino Transferase 29 U/L (17-59); Bilirubin,Total 0.5 mg/dl (0.2-1.3); Blood Urea Nitrogen 16 mg/dl (9-20); Calcium 9.2 mg/dl (8.4-10.2); Carbon Dioxide 25 mmol/L (22.0-30.0); Chloride 102 mmol/L (98-107); Chol/HDL Ratio 3.7 (1-3.5); Cholesterol 136 mg/dl (140-200); Estimated Glomerular Filt Rate 121 ml/min (>60); GFR (African American) 147 ML/MIN (>60); Globulin 2.3 g/dL (1.3-3.2); Glucose 119 mg/dl (74-100); HDL Cholesterol 37 mg/dl (40-60); Potassium 4.4 mmoL/L (3.5-5.1); Sodium 136 mmol/L (136-145); Total Protein,Serum 6.8 g/dl (6.3-8.2); Triglycerides 114 mg/dl (30-150); VLDL Cholesterol 23 mg/dL (0-40)
[2024-11-17 21:53] LABS: Prostate Specific Ag Screen 0.4 ng/ml (0.0-4.0); Thyroid Stimulating Hormone 0.78 uIU/mL (0.465-4.68)
[2024-11-17 21:58] LABS: Creatinine,Urine Random 90 mg/dL (Not Estab.)
[2024-11-17 22:06] LABS: Microalbumin < 6.000 mg/L (0-16.7)
[2024-11-17 22:11] LABS: Hemoglobin A1C 6.9 % (4.0-6.0)
[2024-11-17 22:12] LABS: Vitamin B12 306 pg/mL (239-931)
== END 2024-11-17 23:59 | disposition home or self-care (01) ==
LOC: LAB.DROPOF 11-19 09:34
PROVIDERS: PCP Nurse Practitioner; Visit Provider Nurse Practitioner
DX: E11.9 Type 2 diabetes mellitus without complications (principal); E78.5 Hyperlipidemia, unspecified; Z12.5 Encounter for screening for malignant neoplasm of prostate; I10 Essential (primary) hypertension
CPT/HCPCS: 80053; 80061; 82043; 82570; 82607; 83036; 84443; G0103

== ENCOUNTER 2024-12-02 11:05 | Outpatient (CLI) | payer MEDICAID, SELFPAY ==
[2024-12-02 19:29] LABS: Coronavirus 19, PCR Not Detected (NotDetected); Influenza A, PCR Not Detected (NotDetected); Influenza B, PCR Not Detected (NotDetected); Respiratory Syncytial Virus Not Detected (NotDetected)
[2024-12-03 14:12] LABS: Human Rhinovirus Detected (NotDetected)
== END 2024-12-02 23:59 | disposition home or self-care (01) ==
LOC: LAB.DROPOF 12-03 12:31
PROVIDERS: PCP Nurse Practitioner; Visit Provider Nurse Practitioner
DX: R09.81 Nasal congestion (principal)
CPT/HCPCS: 87631

== ENCOUNTER 2025-03-18 11:45 | Day surgery (SDC) | payer MEDICAID, SELFPAY ==
[2025-03-17 14:06] VITALS: BMI 34.0
[2025-03-18 11:57] VITALS: BP 154/76; PULSE 71; RESP 18; TEMP 36.2; O2SAT 98
[2025-03-18] MEDS: LACTATED RINGERS 1000ML 1,000 ML 50 ML IV (12:14)
[2025-03-18 12:17] LABS: POC Glucose,Bedside 99 (70-110)
--- NOTE | 2025-03-18 12:39 | EXP.ANES.CKL ---
[facility] Disclaimer: The information contained in this section may have been updated after the patient was seen, as this information can be updated by other users. Medical History Positive colorectal cancer screening using DNA-based stool test (~01/2025) Cigarette nicotine dependence Screening for malignant neoplasm of colon declined (~11/17/24) Essential hypertension Hyperlipidemia Type 2 diabetes mellitus without complications Umbilical hernia Hypotestosteronemia FHx: total knee replacement Stroke Migraine Hypertension Diabetes Arthritis PTSD (post-traumatic stress disorder) Degenerated intervertebral disc Osteogenesis imperfecta Surgical History Hx of shoulder surgery Family History Other No significant family history Social History Smoking Status: Light tobacco smoker alcohol intake: former substance use type: unknown current occupational status: employed Travel in the last 8 weeks?: None caffeine: Yes [facility] Anesthesia Checklist Patient Identification Patient Identification: Arm Band and Verbal (Name & ) Structural Data Admitted From: Home Planned Operative Procedure/s: colonscopy Consent for Planned Operative Procedure(s) Verified: Yes Verified Documents: Surgical Consent and History and Physical NPO Status Verified Time NPO: 00:00 Additional verifications Anesthesia Reactions: No Previous Colonoscopy: No Airway Assessment Dentition: Edentulous Neurological Assessment Level of Consciousness: Awake, Alert and Appropriate Hx Seizures: Yes (2003) Anesthesia Plan Anesthesia Risk discussed: Yes Anesthesia Plan: Verified ASA Class: III Anesthesia Type: MAC
--- NOTE | 2025-03-18 12:48 | EXP.HP ---
History of Present Illness *Admission Date: 03/18/25 *Reason for visit:: Screening for colon cancer positive Cologuard test *History of present illness: Mr. Larsen is a 45-year-old gentleman who is here for screening colonoscopy secondary to a positive Cologuard test. The examination is deemed medically necessary for screening colonoscopy. The patient has been seen, interviewed and examined prior to the procedure by both myself and the anesthesia provider. [facility] Disclaimer: The information contained in this section may have been updated after the patient was seen, as this information can be updated by other users. Medical History Positive colorectal cancer screening using DNA-based stool test (~01/2025) Cigarette nicotine dependence Screening for malignant neoplasm of colon declined (~11/17/24) Essential hypertension Hyperlipidemia Type 2 diabetes mellitus without complications Umbilical hernia Hypotestosteronemia FHx: total knee replacement Stroke Migraine Hypertension Diabetes Arthritis PTSD (post-traumatic stress disorder) Degenerated intervertebral disc Osteogenesis imperfecta Surgical History Hx of shoulder surgery Family History Other No significant family history Social History (Updated 03/18/25 @ 12:40 by Sherrie Khan CRNA) Smoking Status: Light tobacco smoker alcohol intake: former substance use type: unknown current occupational status: employed Travel in the last 8 weeks?: None caffeine: Yes Have you lived/traveled outside [place] in past 30 days?: No Contact w/someone who lives/traveled outside US past 30 days?: No Exposure to someone with infectious disease in past 14 days?: No Do you have a fever (greater than 100.4 F or 38 C)?: No Have you tested positive for COVID-19?: No Exposed to someone with COVID-19 in past 14 days?: No Do you have a sore throat?: No Do you have a cough?: No Do you have any weakness?: No Are you experiencing any nausea/vomitting?: No Do you have any diarrhea?: No Are you experiencing any unusual bleeding?: No Do you have any muscle aches/pain?: No Do you have any abdominal pain?: No Are you experiencing loss of taste or smell?: No Other Medical History Have you received the Pneumonia Vaccine: No Review of Systems Review of Systems Review of systems (narrative): Negative *Cardiovascular Comments: Negative *Gastrointestinal Comments: Negative *Genitourinary Comments: Negative *Musculoskeletal Comments: Negative *Neurologic Comments: Negative Meds Home Medications and Allergies Home Medications ?Medication ?Instructions ?Recorded ?Confirmed ?Type oxycodone 10 mg tablet 10 mg PO QID PRN Pain 04/24/23 03/18/25 History tizanidine 4 mg capsule 4 mg PO Q8H PRN . 04/24/23 03/18/25 History blood-glucose meter (Blood Glucose #1 ea 05/22/23 03/17/25 Rx Monitoring kit) lancets #100 ea 10/07/23 03/17/25 Rx blood sugar diagnostic (Freestyle #50 strips 11/25/23 03/17/25 Rx Insu[employer]x strips) metformin 1,000 mg tablet 1,000 mg PO BID #180 tabs 04/13/24 03/18/25 Rx rimegepant 75 mg disintegrating 75 mg PO Q OTHER DAY #16 tabs 11/17/24 03/18/25 Rx tablet (Nurtec ODT) lisinopril 10 1 tab PO DAILY #90 tabs 01/13/25 03/18/25 Rx mg-hydrochlorothiazide 12.5 mg tablet peg 3350-electrolytes 236 240 ml PO Q10M #4,000 mL 03/09/25 Rx gram-22.74 gram-6.74 gram-5.86 gram solution (Golytely) atorvastatin 20 mg tablet 20 mg PO DAILY 03/17/25 03/18/25 History New Prescriptions to Start Prescriptions: Allergies Allergy/AdvReac Type Severity Reaction Status Date / Time tramadol Allergy Migraine Verified 03/18/25 11:57 vancomycin Allergy Other Verified 03/17/25 13:55 Exam Data for Last 24 hours Vital signs and Labs for Last 24 Hours: Temp Pulse Resp BP Pulse Ox O2 Del Method 97.2 F L 71 18 154/76 H 98 Room Air 03/18/25 11:57 03/18/25 11:57 03/18/25 11:57 03/18/25 11:57 03/18/25 11:57 03/18/25 11:57 Laboratory Results - last 24 hr 03/18/25 12:09: POC Glucose 99 I & O for Last 24 hours: Intake & Output 03/15/25 03/16/25 03/17/25 03/18/25 23:59 23:59 23:59 23:59 Weight 230 lb *Routine HEENT Exam Head: Present normocephalic Eye: Present EOMI and PERRL ENT: Present mucous membranes moist *Routine Neck Exam Neck: Present supple *Routine Respiratory Exam Respiratory: Present CTA bilaterally *Routine Cardiovascular Exam Cardiovascular: Present RRR *Routine Abdominal Exam Abdominal: Present soft and normoactive bowel sounds; Absent tenderness *Routine Rectal Exam Rectal:: deferred *Routine Genitalia Exam Genitalia:: deferred *Routine Extremities Exam Extremities: Absent cyanosis, clubbing or edema *Routine Skin Exam Skin: Present warm; Absent rash *Routine Neurological Exam Neurological: Present alert and oriented X3 Assessment and Plan *Assessment and plan (1) Positive colorectal cancer screening using DNA-based stool test: Status: Acute Category: Medical Code(s): R19.5 - Other fecal abnormalities (2) Screening for colon cancer: Status: Acute Category: Medical Code(s): Z12.11 - Encounter for screening for malignant neoplasm of colon Plan A/P: 1. Positive Cologuard test/screening for colon cancer is the preprocedural diagnosis. The patient will be anesthetized/sedated using MAC sedation. The patient has been seen and examined. Cardiac and lung assessment prior to the examination is stable. Proceed with planned screening colonoscopy.
--- NOTE | 2025-03-18 13:03 | [facility].PROCNOTE ---
[facility] Procedure Note Date: 03/18/25 Time: 13:20 Procedure Note:: Colonoscopy Procedure Report: Colonoscopy with cold snare polypectomy, snare cautery and Endo Clip placement Endoscopist: Angel Koch II, MD Referring physician: MARY Rosado Date of Procedure: March 18, 2025 Equipment: Olympus 190 variable stiffness pediatric colonoscope Sedation: MAC sedation Indication: Mr. Larsen is a 45-year-old gentleman with a recent positive Cologuard test in January 2025. He is here for initial screening colonoscopy. The patient does get some left lower quadrant abdominal pain. He does have a history of a hiatal hernia. He reports no weight loss, bloating, bowel irregularity or change in bowel habits. He reports no hematochezia or bright red blood per rectum. He reports no family history of colon cancer. Procedure: Prior to the procedure, a history and physical exam was performed, and patient's medications and allergies were reviewed. The risks, benefits and alternatives of the sedation and procedure were discussed with the patient. All questions were answered and informed consent was obtained. The patient was brought to the procedure room. Patient identification and proposed procedure were verified by the physician and the nurse. The patient was placed in a left lateral decubitus position and the scope was passed under direct vision. Throughout the procedure, the patient's blood pressure, pulse, and oxygen saturations were monitored continuously. The colonoscopy was accomplished without difficulty. The patient tolerated the procedure well. Findings: On digital rectal examination there was normal rectal tone. There were no external hemorrhoids. The colonoscope was introduced through the anal canal to the rectum and advanced to the cecum. The ileocecal valve and appendiceal orifice were identified. The scope was advanced a short distance into the ileum which appeared grossly normal. The scope was then withdrawn into the colon. The cecum, ascending and transverse colon and mucosa were grossly normal. There were scattered diverticuli throughout the descending and sigmoid colon (LEFT colon). There was some haustral edema adjacent to the diverticuli suggestive of mild chronic sigmoid diverticulitis. There was a pedunculated 12 mm polyp in the sigmoid removed via snare cautery. There was minor heme from the stalk and a single Endo Clip was used to close the stalk and provide hemostasis. There were 2 additional polyps in the rectum (4 and 4 mm) which were both removed via cold snare polypectomy. Upon retroflexion within the rectum there were grade 1-2 internal hemorrhoids. The preparation was excellent throughout with [place] Preparation Score of 9. The cecal time was 14 minutes. Impression: 1. Pedunculated 12 mm sigmoid colon polyp 2. 2 additional diminutive rectal polyps (4 mm each) 3. Left-sided diverticulosis with evidence of mild chronic sigmoid diverticulitis 4. Grade 1-2 internal hemorrhoids Plan: I will follow-up the polyp histology and recommend repeat surveillance colonoscopy again in 3 to 5 years based upon the pathology. I will discussed dietary measures and encourage daily psyllium bulking fiber supplementation on a long-term maintenance basis.
[2025-03-18 13:22] VITALS: BP 95/66; PULSE 68; RESP 18; TEMP 36.9; O2SAT 95
[2025-03-18 13:32] VITALS: BP 107/70; PULSE 61; RESP 18; TEMP 36.9; O2SAT 97
[2025-03-18 13:42] VITALS: BP 116/98; PULSE 66; RESP 18; TEMP 36.9; O2SAT 97
[2025-03-18 13:52] VITALS: BP 122/71; PULSE 57; RESP 18; TEMP 36.9; O2SAT 97
== END 2025-03-18 14:00 | disposition home or self-care (01) ==
PROVIDERS: PCP Nurse Practitioner; Visit Provider Internal Medicine Gastroenterology
PROC: 0DJD8ZZ Inspection of Lower Intestinal Tract, Via Natural or Artificial Opening Endoscopic (ICD-10-PCS; CPT 45378; principal; 2025-03-18 13:00)
DX: Z12.11 Encounter for screening for malignant neoplasm of colon (principal); K57.32 Diverticulitis of large intestine without perforation or abscess without bleeding; K64.1 Second degree hemorrhoids; K51.40 Inflammatory polyps of colon without complications; F17.210 Nicotine dependence, cigarettes, uncomplicated; K62.1 Rectal polyp; E11.9 Type 2 diabetes mellitus without complications; I10 Essential (primary) hypertension; E78.5 Hyperlipidemia, unspecified; Z86.73 Personal history of transient ischemic attack (TIA), and cerebral infarction without residual deficits; Z79.84 Long term (current) use of oral hypoglycemic drugs; Z79.899 Other long term (current) drug therapy; Z88.1 Allergy status to other antibiotic agents; Z88.5 Allergy status to narcotic agent
CPT/HCPCS: 45385; 82962; J2003; J2704; J7120

== ENCOUNTER 2025-08-16 10:33 | Outpatient (CLI) | payer MEDICAID, SELFPAY ==
[2025-08-16 15:00] LABS: Hematocrit 47.6 % (42.0-52.0); Hemoglobin 16.3 g/dL (14.1-18.0); Immature Granulocytes % 0.2 %; Mean Corpuscular HGB Conc 34.2 g/dL (31.8-35.4); Mean Corpuscular Hemoglobin 29.8 pg (27.0-31.2); Mean Corpuscular Volume 87.0 fl (80-94); Nucleated Red Blood Cells % 0 %; Platelet Count 290 K/mm3 (142-424); Red Blood Count 5.47 M/mm3 (4.60-6.20); Red Cell Distribution Width-SD 39.2 fL; White Blood Count 10.7 K/mm3 (4.8-10.8)
[2025-08-16 15:22] LABS: Alanine Aminotransferase 44 U/L (12-78); Albumin Level 4.7 g/dl (3.5-5.0); Albumin/Globulin Ratio 1.5 (1.1-1.8); Alkaline Phosphatase 87 U/L (38-126); Anion Gap 18.3 mEq/L (5-15); Aspartate Amino Transferase 30 U/L (17-59); Bilirubin,Total 0.8 mg/dl (0.2-1.3); Blood Urea Nitrogen 15 mg/dl (9-20); Calcium 9.9 mg/dl (8.4-10.2); Carbon Dioxide 25 mmol/L (22.0-30.0); Chloride 99 mmol/L (98-107); Cholesterol 145 mg/dl (140-200); Creatinine,Serum 0.80 mg/dl (0.66-1.25); Estimated Glomerular Filt Rate 104 ml/min (>60); GFR (African American) 125 ML/MIN (>60); Globulin 3.2 g/dL (1.3-3.2); Glucose 106 mg/dl (74-100); HDL Cholesterol 37 mg/dl (40-60); Potassium 4.3 mmoL/L (3.5-5.1); Sodium 138 mmol/L (136-145); Total Protein,Serum 7.9 g/dl (6.3-8.2); Triglycerides 174 mg/dl (30-150)
[2025-08-16 15:42] LABS: Hemoglobin A1C 7.4 % (4.0-6.0)
== END 2025-08-16 23:59 ==
LOC: LAB.DROPOF 08-18 10:33
PROVIDERS: PCP Nurse Practitioner; Visit Provider Nurse Practitioner
DX: E78.5 Hyperlipidemia, unspecified (principal); E11.9 Type 2 diabetes mellitus without complications; I10 Essential (primary) hypertension
CPT/HCPCS: 80053; 80061; 83036; 85025